=== PATIENT | female | born 2000 | race Caucasian/White ===

== ENCOUNTER 2018-02-12 13:11 | Inpatient (IN) ==
[2018-02-12] MEDS ORDERED: PROMETHAZINE 25 MG/ML VIAL IV ONE (13:35)
[2018-02-12] MEDS ORDERED: 0.9 % SODIUM CHLORIDE 1,000 ML IV ONE (13:35)
--- NOTE | 2018-02-12 13:41 | Emergency Department Note ---
Fever HPI - General Chief Complaint: Fever Stated Complaint: cough, vomiting, fever Time Seen by Provider: 02/12/18 13:15 Source: patient Mode of arrival: wheelchair Limitations: no limitations - History of Present Illness HPI Narrative: 17-year-old female presents with worsening cold symptoms. She has been seen twice in the [facility] and was taking Augmentin. She had a chest x-ray about 10 days ago that showed some left upper volume loss but needed repeat x-rays. She states she has had on and off fevers and does not know how high they are. She has had a few episodes of vomiting and has had rib pain. She has a lot of sinus congestion. She has nausea. She has not been able to eat much or drink. She denies any urinary symptoms. She was told to come here for a sepsis workup. - Related Data Previous Rx's Medication Instructions Recorded montelukast 10 mg tablet 10 mg PO QHS #30 tab 01/28/18 Allergies Allergy/AdvReac Type Severity Reaction Status Date / Time hydrocodone Allergy Intermediate Hives Verified 02/12/18 12:34 Review of Systems All systems ED: reviewed and negative except as stated. Fever PMH - Past Medical History Medical history: Reports: other (PCOS) Surgical history ED: Reports: non-contributory Psychiatric history: Reports: no psych history PEARL DIVER history: Reports: non-contributory Family history: Reports: no significant family history - Social History smoking status: Never smoker Physical Exam Limitations: no limitations General appearance: alert, in no apparent distress Head: atraumatic Eye: Present: normal appearance. Absent: conjunctival injection Neck: Present: normal inspection, full ROM Chest: Present: normal inspection, symmetric chest wall rise, tenderness (left anterior ribs) Respiratory: Present: other (Decreased lung sounds left upper lobe) Cardiovascular: Present: regular rate, normal heart sounds Abdominal: Present: soft, normal bowel sounds. Absent: tenderness Extremities: Present: normal inspection, full ROM Neurological: Present: alert, oriented X3 Psychiatric: Present: normal affect, normal mood Skin: Present: warm, dry, intact Course Vital Signs Temperature 98.3 F 02/12/18 13:12 Pulse Rate 89 02/12/18 13:12 Respiratory Rate 18 02/12/18 13:12 Blood Pressure 125/85 02/12/18 13:12 Temperature 98.3 F 02/12/18 13:34 Pulse Rate 89 05/26/18 13:34 Respiratory Rate 16 02/12/18 14:04 Blood Pressure 125/85 02/12/18 13:34 Pulse Oximetry (%) 96 02/12/18 13:34 Fever - MDM Narrative Medical decision making narrative: Because of her elevated white count and worsening condition she will be admitted for IV antibiotics. - Lab Data Lab results reviewed: Yes I reviewed the patient's lab results. Result diagrams: 02/12/18 13:55 02/12/18 13:55 Lab Results 02/12/18 02/12/18 02/12/18 Range/Units 13:55 13:55 13:55 WBC 14.8 H (4.5-11.0) K/mcL RBC 4.87 (4.00-5.20) M/mcL Hgb 14.6 (12.0-15.0) g/dL Hct 41.7 (36.0-48.0) % MCV 85.6 (80.0-100.0) fL MCH 30.0 (26.0-34.0) pg MCHC 35.0 (31.0-36.0) g/dL RDW 12.4 (11.5-14.5) % Plt Count 335 (140-440) K/mcL MPV 8.2 (7.4-10.4) fL Gran % 81.2 H (38.0-78.0) % Lymph % (Auto) 11.3 L (15.5-49.0) % Rhea % (Auto) 5.8 (1.0-12.0) % Eos % (Auto) 0.8 (0.0-7.0) % Baso % (Auto) 0.9 (0.0-2.0) % Gran # 12.0 H (1.8-8.0) K/mcL Lymph # (Auto) 1.7 (1.5-4.8) K/mcL Rhea # (Auto) 0.9 (0.1-0.9) K/mcL Eos # (Auto) 0.1 (0.0-0.7) K/mcL Baso # (Auto) 0.1 (0.0-0.3) K/mcL VBG Lactic Acid 1.3 (0.5-2.2) mmol/L Sodium 135 (133-145) mmol/L Potassium 3.6 (3.3-5.1) mmol/L Chloride 94 L (96-108) mmol/L Carbon Dioxide 24 (22-30) mmol/L Anion Gap 17.0 H (8-16) BUN 7 (6-20) mg/dl Creatinine 0.8 (0.6-1.1) mg/dl GFR Calculation 107 Glucose 82 (70-105) mg/dL Calcium 9.7 (8.6-10.4) mg/dl Total Bilirubin 0.9 (0.0-1.0) mg/dL AST 29 (0-37) U/l ALT 51 H (0-40) U/l Alkaline Phosphatase 100 (39-117) U/L Total Protein 8.4 (5.9-8.4) gm/dL Albumin 4.5 (3.2-5.2) gm/dL Globulin 3.9 H (2.2-3.7) gm/dL Albumin/Globulin Ratio 1.2 (1.0-2.3) Urine Color Urine Appearance Urine pH (5.0-9.0) Ur Specific Crawford (1.000-1.035) Urine Protein (NEG) mg/dL Urine Glucose (UA) (NEG) mg/dL Urine Ketones (NEG) mg/dL Urine Occult Blood (<0.03) mg/dL Urine Nitrate (NEG) Urine Bilirubin (NEG) mg/dL Urine Urobilinogen (NEG) mg/dL Ur Leukocyte Esterase (NEG) /uL Urine RBC (0-1) /hpf Urine WBC (0-4) /hpf Ur Squamous Epith Cells (0-4) /hpf Ur Transition Epith Cell (0-2) /hpf Urine Bacteria (0) /hpf Urine Mucus (0) /hpf Ur Culture Indicated? 02/12/18 Range/Units 13:59 WBC (4.5-11.0) K/mcL RBC (4.00-5.20) M/mcL Hgb (12.0-15.0) g/dL Hct (36.0-48.0) % MCV (80.0-100.0) fL MCH (26.0-34.0) pg MCHC (31.0-36.0) g/dL RDW (11.5-14.5) % Plt Count (140-440) K/mcL MPV (7.4-10.4) fL Gran % (38.0-78.0) % Lymph % (Auto) (15.5-49.0) % Rhea % (Auto) (1.0-12.0) % Eos % (Auto) (0.0-7.0) % Baso % (Auto) (0.0-2.0) % Gran # (1.8-8.0) K/mcL Lymph # (Auto) (1.5-4.8) K/mcL Rhea # (Auto) (0.1-0.9) K/mcL Eos # (Auto) (0.0-0.7) K/mcL Baso # (Auto) (0.0-0.3) K/mcL VBG Lactic Acid (0.5-2.2) mmol/L Sodium (133-145) mmol/L Potassium (3.3-5.1) mmol/L Chloride (96-108) mmol/L Carbon Dioxide (22-30) mmol/L Anion Gap (8-16) BUN (6-20) mg/dl Creatinine (0.6-1.1) mg/dl GFR Calculation Glucose (70-105) mg/dL Calcium (8.6-10.4) mg/dl Total Bilirubin (0.0-1.0) mg/dL AST (0-37) U/l ALT (0-40) U/l Alkaline Phosphatase (39-117) U/L Total Protein (5.9-8.4) gm/dL Albumin (3.2-5.2) gm/dL Globulin (2.2-3.7) gm/dL Albumin/Globulin Ratio (1.0-2.3) Urine Color Yellow Urine Appearance Clear Urine pH 6.0 (5.0-9.0) Ur Specific Crawford 1.024 (1.000-1.035) Urine Protein 30 A (NEG) mg/dL Urine Glucose (UA) Negative (NEG) mg/dL Urine Ketones 5/tr A (NEG) mg/dL Urine Occult Blood Neg (<0.03) mg/dL Urine Nitrate Neg (NEG) Urine Bilirubin Neg (NEG) mg/dL Urine Urobilinogen 4.0 A (NEG) mg/dL Ur Leukocyte Esterase Neg (NEG) /uL Urine RBC < 1 (0-1) /hpf Urine WBC 3 (0-4) /hpf Ur Squamous Epith Cells 1 (0-4) /hpf Ur Transition Epith Cell < 1 (0-2) /hpf Urine Bacteria 0 (0) /hpf Urine Mucus Many A (0) /hpf Ur Culture Indicated? No - Radiology Data Radiology results reviewed: Yes I reviewed the patient's radiology results. 1. Improved left upper lobe volume loss and infiltrate 2. Slight interval worsening of lingular infiltrate 3. Findings remain consistent with pneumonia. Disposition Pt seen by LEGAL RECORDS MANAGER/PA only: Yes Clinical Impression: Community acquired pneumonia Disposition: Xfer As Inpt ([facility]) Condition: Fair Referrals: Nicole Bajwa [Primary Care Provider] -
--- NOTE | 2018-02-12 14:36 | XRay Report ---
INDICATION: Cough TECHNIQUE: PA and lateral upright chest x-ray COMPARISON: 02/02/2018 FINDINGS:Left upper lobe volume loss and infiltrate are improved however there is increased lingular infiltrate. Appearance is consistent with pneumonia. Findings have improved overall but have not resolved and continued follow-up recommended. Heart size and vascularity are normal. Basia and mediastinum are negative. No pleural fluid. IMPRESSION: 1. Improved left upper lobe volume loss and infiltrate 2. Slight interval worsening of lingular infiltrate 3. Findings remain consistent with pneumonia. Interpreted and Authenticated by: Al Edmonds 02/12/18
[2018-02-12 14:41] LABS: Appearance,Urine CLEAR; Bacteria,Urine 0 /hpf (0); Bilirubin,Urine NEG (NEG); Color,Urine YELLOW; Glucose,Urine (UA) NEGATIVE (NEG); Leukocyte Esterase,Urine NEG /uL (NEG); Mucus,Urine MANY /hpf (0); Protein,Urine 30 mg/dL (NEG); Specific Gravity,Urine 1.024 (1.000-1.035); Urine Blood NEG mg/dL (<0.03); Urine RBC < 1 /hpf (0-1); Urine Squamous Epithelial Cell 1 /hpf (0-4); Urine Transitional Epi Cells < 1 /hpf (0-2); Urine WBC 3 /hpf (0-4)
[2018-02-12 14:52] LABS: ALT/SGPT 51 U/l (0-40); Albumin 4.5 gm/dL (3.2-5.2); Albumin/Globulin Ratio 1.2 (1.0-2.3); Alkaline Phosphatase 100 U/L (39-117); Basophils # (Auto) 0.1 K/mcL (0.0-0.3); Basophils % (Auto) 0.9 % (0.0-2.0); Blood Urea Nitrogen 7 mg/dl (6-20); Eosinophils # (Auto) 0.1 K/mcL (0.0-0.7); Eosinophils % (Auto) 0.8 % (0.0-7.0); Granulocytes % (Auto) 81.2 % (38.0-78.0); Lymphocytes # (Auto) 1.7 K/mcL (1.5-4.8); Lymphocytes % (Auto) 11.3 % (15.5-49.0); Mean Cell Volume 85.6 fL (80.0-100.0); Monocytes # (Auto) 0.9 K/mcL (0.1-0.9); Monocytes % (Auto) 5.8 % (1.0-12.0); Platelet Count 335 K/mcL (140-440); RBC 4.87 M/mcL (4.00-5.20); Red Cell Distribution Width 12.4 % (11.5-14.5)
[2018-02-12] MEDS ORDERED: cefTRIAXone 2 GM VIAL IV ONE (14:57)
[2018-02-12] MEDS ORDERED: LEVOFLOXACIN 750 MG/150 ML BAG IV ONE (14:57)
--- NOTE | 2018-02-12 15:58 | Internal Med History&Physical ---
Medical - H&P: [facility] Patient information: Note initiated : 02/12/18 at 3:56 pm Patient: Eirka Whitaker 17 y/o F admitted on 12 February for pneumonia which failed outpatient antibiotics. Chief Complaint: cough, nausea, fever, myalgias. History of present illness: Ms. Whitaker is a 17 year old F with history of environmental allergies and allergy induced intermittent asthma who presented with persistent cough and fever after completing course of Augmentin for outpatient pneumonia. Patient reports she started feeling ill with cough, fever, nausea, headache, and vague myalgias, particularly in her back about two weeks ago. She recently finished up spring and returned home for the summer. She had been seen and evaluated in the urgent care setting, and was diagnosed with a left upper lobe pneumonia, community acquired, and placed on Augmentin. She never improved, and now reports some worsening in the last two days. She denies vomiting, but reports she hasn't eaten well due to nausea which she attributes to swallowing the phlegm that she's been coughing up. Contacts are well, no previous history of pneumonia, no hospitalizations for asthma in the past. Does not believe she has ever been on prednisone. Rarely uses her inhaler, and she has not increased use with current illness. No oral contraceptives, no history of VTE except for father thinks his mother might have had a blood clot at some time. Non-smoker with no smoking exposure. In the ED, she was found to have persistent white count (14) and CXR demonstrated worsening of a lingular infiltrate while noting improvement of CLARY infiltrate. Cultures were drawn and IV antibiotics initiated. I received sign out from Aisha Prince and accepted the patient. All systems: reviewed and no additional remarkable complaints except as stated - Genitourinary Additional comments: LMP about 3 weeks ago Medical - H&P: PMH Medical history: Ear infections as a child. No h/o tympanostomy tubes. Environmental allergies - on Singulair Allergy induced asthma - prn inhaled beta agonist. Polycystic ovary syndrome - no medications at present. Hypoglycemia - reports diagnosed with 5 hour glucose tolerance test. Pertinent family history: Possible VTE event in paternal grandmother; details not clear. Multiple family members, including father, with asthma. Social history: Lives with grandmother at the moment, just finished spring at [employer] where she is studying [employer] education. Vegetarian diet since September, lifelong non smoker, no alcohol or illicit drug use. Functional capacity: independent ambulation Smoking status: Never smoker Medical - H&P: Meds Home Medications Medication Instructions Recorded Confirmed Type montelukast 10 mg tablet 10 mg PO QHS #30 tab 01/28/18 02/12/18 Rx Allergies Allergy/AdvReac Type Severity Reaction Status Date / Time hydrocodone Allergy Intermediate Hives Verified 02/12/18 12:34 Medical - H&P: Exam - Constitutional Vitals: Temp Pulse Resp BP Pulse Ox 98.7 F 84 16 125/83 97 02/12/18 15:10 02/12/18 15:10 02/12/18 14:04 02/12/18 15:10 02/12/18 15:10 - Other Additional findings: GENERAL: Patient was quite tearful when I initially went into the room, she was in the process of getting a blood culture drawn and noted that needles had always made her an easy. She was cooperative with the interview and exam, intermittent cough was noted, respirations unlabored speech coherent fluent and articulate content appropriate. HEENT: Head is atraumatic normocephalic, EARS: left TM has old scar evident otherwise pearly abrams and translucent, right TM is pearly abrams but has obvious retraction against the ossicle. Neither shows erythema or bulging. No sinus tenderness. EYES: No icterus no injected vessels no periorbital edema or swelling. Full range of extraocular movements, PERRL. OROPHARYNX: Lime dentition with good oral hygiene, palate raised symmetrically, no posterior erythema, no tonsillar swelling or exudates. NECK: Trachea is midline, no masses or adenopathy RESPIRATORY: No accessory muscle involvement, air entry to the bases, isolated expiratory wheeze noted right posterior lung samuels, no focal areas of crackles or diminished breath sounds. No dullness to percussion. CARDIAC: Regular rate and rhythm no murmurs rubs or gallops. ABDOMINAL: Occasional bowel sounds, nondistended, soft, nontender no masses or hepatosplenomegaly. EXTREMITIES: No edema, no palpable cords, pulses 4, capillary refill less than 3 seconds. SKIN: No rash, no urticaria, no vascular mottling noted. MUSCULOSKELETAL: No joint swelling erythema or long bone deformities, uncomfortable to palpation of upper lumbar lower thoracic back. Medical - H&P: Reslt - Labs CBC & Chem 7: 02/12/18 13:55 02/12/18 13:55 Labs: Short CBC 02/12/18 Range/Units 13:55 WBC 14.8 H (4.5-11.0) K/mcL Hgb 14.6 (12.0-15.0) g/dL Hct 41.7 (36.0-48.0) % Plt Count 335 (140-440) K/mcL BMP 02/12/18 13:55 Sodium 135 Potassium 3.6 Chloride 94 L Carbon Dioxide 24 BUN 7 Creatinine 0.8 Glucose 82 Calcium 9.7 Liver Function 02/12/18 Range/Units 13:55 Total Bilirubin 0.9 (0.0-1.0) mg/dL AST 29 (0-37) U/l ALT 51 H (0-40) U/l Alkaline Phosphatase 100 (39-117) U/L Albumin 4.5 (3.2-5.2) gm/dL Urine 02/12/18 Range/Units 13:59 Urine Color Yellow Urine Appearance Clear Urine pH 6.0 (5.0-9.0) Ur Specific Union 1.024 (1.000-1.035) Urine Protein 30 A (NEG) mg/dL Urine Glucose (UA) Negative (NEG) mg/dL - Imaging and Cardiology Chest x-ray Status: image reviewed by me (left upper lobe infiltrate still evident, improved from previous. ) Additional comments: Also reviewed Dr. Ang's report - more subtle lingular infiltrate present. Medical - H&P: A/P - Narrative A/P Narrative: 1 - Pneumonia, community acquired, unresponsive to outpatient therapy. Patient has been compliant with medications. Suspect either resistant or atypical organism. Has been started on Levaquin in the ED, should cover what the Augmentin did not. Blood and sputum cultures obtained, but may be unreliable given recent antibiotics; will check urine antigens. Although less likely, possible evolving complication including empyema or abscess - so will check non- contrast CT. No overt sepsis at present, oxygenating well. Anticipate requiring at least two midnights for appropriate IV antibiotics. 2 - proteinuria - blood pressure normal, GFR and creatinine normal. Checking urine antigens as above. 3 - h/o intermittent asthma - no evidence of exacerbation at present, will use prn beta agonists. 4 - h/o environmental allergies - continue Singulair. Plan: Inpatient admission Pulse ox with vitals Prn oxygen if she should require it Duo neb prn Continue singulair IV Levaquin Non-con chest CT Await urine antigens Consider oral prednisone regular diet repeat labs in AM Tylenol prn for fever or myalgias full code. Time spent on evaluating patient, reviewing data, discussion with parents, coordinating admission, 50 minutes.
[2018-02-12] MEDS ORDERED: ONDANSETRON 4 MG/2 ML VIAL IV ONE (16:19)
[2018-02-12] MEDS ORDERED: IPRATROPIUM/ALBUTEROL 3 ML AMPUL.NEB NEB PRN (16:48)
--- NOTE | 2018-02-12 19:29 | Cat Scan Report ---
CLINICAL INFORMATION: Pneumonia COMPARISON: Chest x-rays dated 02/02/2018, 02/12/2018 TECHNIQUE: Axial noncontrast enhanced images through the chest. Sagittally and coronally reformatted images. MIP reformatted images. FINDINGS: There is infiltrate and volume loss in the left upper lobe. There is also mild left lower lobe infiltrate and infiltrate extending into the lingular segment of the left upper lobe. Findings are consistent with pneumonia. There is left hilar adenopathy. This is suboptimally evaluated as this patient did not receive intravenous contrast material. No pathologic mediastinal lymphadenopathy. Left hilar adenopathy is probably reactive and physiologic. If pneumonia is persistent in this young patient bronchoscopy would be appropriate. There is minimal infiltrate in the posterior basilar segment of the right lower lobe. Right lung is otherwise negative There is no pleural fluid. No pericardial fluid. No axillary or supraclavicular adenopathy. Images through the upper abdomen are negative. Thoracic spine, ribs, sternum are negative IMPRESSION: 1. Predominantly left lung infiltrate consistent with pneumonia. Follow-up chest x-rays recommended 2. Left hilar adenopathy is not well evaluated on this noncontrast enhanced examination. This is probably reactive physiologic adenopathy. The exam was performed using radiation dose optimization techniques including, but not limited to, automated exposure control, adjustment of the mA and/or kV according to patient size and use of iterative reconstruction technique. Interpreted and Authenticated by: Al Edmonds 02/12/18
[2018-02-12] MEDS: MONTELUKAST 10 MG TABLET PO SCH (20:47)
[2018-02-12] MEDS: 0.9 % SODIUM CHLORIDE 10 ML SYRINGE IV SCH (22:00)
[2018-02-13] MEDS: 0.9 % SODIUM CHLORIDE 10 ML SYRINGE IV SCH ×3 (05:32→22:08)
[2018-02-13 06:04] LABS: ALT/SGPT 38 U/l (0-40); Albumin 3.7 gm/dL (3.2-5.2); Albumin/Globulin Ratio 1.1 (1.0-2.3); Alkaline Phosphatase 87 U/L (39-117); Bilirubin,Direct < 0.2 mg/dL (0.0-0.3); Blood Urea Nitrogen 7 mg/dl (6-20); Gamma Glutamyl Transpeptidase 22 U/L (5-36); Uric Acid 4.7 mg/dL (2.5-8.0)
--- NOTE | 2018-02-13 08:07 | Internal Med Progress Note ---
Medical - PN: Subj Patient information: Note initiated : 02/13/18 at 8:02 am Patient: Erika Whitaker 17 y/o F admitted on 02/12/18 for pneumonia, failed outpatient treatment. Interval history: No new complaints this morning; states "feels better" - particularly in regard to myalgias. No headache. Cough present, worse with deep breathing, denies sputum this AM. Nausea much better as well. Hasn't been out of bed yet, hasn' t eaten breakfast yet, but states feels hungry. Notes some discomfort with placement of IV in left antecubital area, but does not want any more needles. Tells me she was living in student housing in [place] while in school, as far as she knows, no illnesses there. - Constitutional Vitals: Vital Signs Temp Pulse Resp BP Pulse Ox 98.2 F 75 18 125/72 97 02/13/18 03:53 02/13/18 03:53 02/13/18 03:53 02/13/18 03:53 02/13/18 03:53 Period Temp Pulse Resp BP Sys/Tolentino Pulse Ox Last 24 Hr 98.1 F-99.1 F 75-97 16-20 106-125/62-85 95-98 Intake and Output 02/12/18 02/13/18 02/13/18 21:59 05:59 13:59 Intake Total 1150 / 1150 150 / 150 Output Total 450 / 450 Balance 700 / 700 150 / 150 Weight 216 lb Intake & Output: Intake & Output 02/12/18 02/13/18 02/13/18 21:59 05:59 13:59 Intake Total 1150 / 1150 150 / 150 Output Total 450 / 450 Balance 700 / 700 150 / 150 Weight 216 lb Intake: IV 1150 / 1150 Sodium Chloride 0.9% 1,000 ml @ 1000 / 1000 Wide Open IV BOLUS ONE Rx#: [id number] Oral 150 / 150 Output: Void Amount 450 / 450 Other: # Voids 2 - Additional findings Additional findings: GENERAL: No acute distress. Shallow breathing. Speech coherent, fluent, articulate; cooperative. Follows directions. No shortness of breath noted during exam, but cough present with any deep breaths. Noted patient appears to avoid deep breathing to avoid the cough. HEENT: Moist mucus membranes, color good, no scleral icterus. NECK: No masses, trachea midline LUNGS: Cough with deep breathing. No sputum noted. Air entry to bases, initial end-insp squeaks and pops which cleared with repeated encouragement to deep breathe. No focally diminished breath sounds, no wheezes, no crackles. COR: Regular rate and rhythm, no murmurs, rubs, gallops EXT: Pulses x 4, warm, cap refill <2 sec. Medical - PN: Obj Da - Labs CBC & Chem 7: 02/12/18 13:55 02/13/18 03:49 Labs: Abnormal Lab Results 02/12/18 02/12/18 02/12/18 13:59 13:55 13:55 WBC 14.8 H Gran % 81.2 H Lymph % (Auto) 11.3 L Gran # 12.0 H Chloride 94 L Anion Gap 17.0 H ALT 51 H Globulin 3.9 H Urine Protein 30 A Urine Ketones 5/tr A Urine Urobilinogen 4.0 A Urine Mucus Many A Meds: Medications Albuterol/Ipratropium (Duoneb) 3 ml NEB Q4HP PRN PRN Reason: Shortness Of Breath Montelukast Sodium (Singular) 10 mg PO QHS [facility] Last Admin: 02/12/18 20:47 Dose: 10 mg Ondansetron HCl (Zofran) 4 mg IV Q6HP PRN PRN Reason: Nausea And Vomiting Sodium Chloride (Saline Flush) 10 ml IV Q8 [facility] Last Admin: 02/13/18 05:32 Dose: 10 ml Medical - PN: A/P - Time Spent With Patient Total time spent is greater than 50% in coordination of care (as documented) at patient's floor/unit and/or counseling patient: 15 - 24 minutes - Narrative A/P Narrative: 1) Pneumonia: Afebrile all night, no white count this AM, will check tomorrow. She has incentive spirometry at bedside, encouraged her to use it regularly. Discussed importance of deep breathing to fully expand the lungs and its role in clinical improvement. Continue IV Levaquin, awaiting urine antigens. Has not been able to provide a sputum sample yet - at this point, may be of limited value given IV antibiotics. Will continue to try to obtain. 2)Proteinuria - incidentally noted on initial urine. Blood pressures have been fine, chemistries fine this AM. Urine should be rechecked after illness over, at this point, no significant suspicion of infection related glomerular nephritis. No evidence of acute kidney injury. 3) History of asthma - no evidence of infection related exacerbation. Nebs prn. Plan: IV abx - to continue at least one more day. Await urine antigen results Encourage activity (out of bed, walk, up to chair) Encourage incentive spirometry - even if deep breathing evokes cough Repeat CBC in AM. Continue nebs and Singulair. Medical - PN: Qual - Stroke Symptom Onset Unknown: No - VTE Deep Vein Thrombosis/Pulmonary Embolism Present on Admission: No
[2018-02-13] MEDS: LEVOFLOXACIN 750 MG/150 ML BAG IV SCH (12:16)
[2018-02-13] MEDS: ONDANSETRON 4 MG/2 ML VIAL IV PRN (14:06)
[2018-02-13] MEDS ORDERED: ACETAMINOPHEN 325 MG TABLET PO ONE (19:23)
[2018-02-13] MEDS: MONTELUKAST 10 MG TABLET PO SCH (20:23)
[2018-02-13] MEDS: ACETAMINOPHEN 325 MG TABLET PO PRN (23:27)
[2018-02-14] MEDS: ACETAMINOPHEN 325 MG TABLET PO PRN (02:59)
[2018-02-14] MEDS: 0.9 % SODIUM CHLORIDE 10 ML SYRINGE IV SCH (05:15)
[2018-02-14] MEDS: LEVOFLOXACIN 750 MG/150 ML BAG IV SCH (08:45)
[2018-02-14] MEDS: ONDANSETRON 4 MG/2 ML VIAL IV PRN (09:49)
[2018-02-14 12:15] LABS: Mean Cell Volume 90.4 fL (80.0-100.0); Mean Corpuscular HGB Conc 34.9 g/dL (31.0-36.0); Mean Corpuscular Hemoglobin 31.6 pg (26.0-34.0); Platelet Count 369 K/mcL (140-440); RBC 4.59 M/mcL (4.00-5.20); Red Cell Distribution Width 12.8 % (11.5-14.5)
--- NOTE | 2018-02-14 12:41 | Discharge Summary ---
Medical - DS: Prov Patient information: Note initiated : 02/14/18 at 12:39 pm Patient: Erika Whitaker 17 y/o F admitted on 02/12/18 for pneumonia, unresponsive to outpatient therapy. Date of admission: 02/12/18 16:40 Discharge date: 02/14/18 Primary care physician: Nicole Bajwa Admitting clinician: Mana Perrin Attending physician on admission: Mana Perrin Consults: 02/12/18 15:03 Consult to Physician [CONS] Stat Comment: Consulting Provider: Mana Perrin Reason For Exam: Physician to Consult Attending physician on discharge: Mana Perrin Medical - DS: Meds - Discharge Medications Prescriptions: Levofloxacin [Levaquin] 750 mg PO DAILY #7 tab Active and Home Medications: Home Medications montelukast 10 mg tablet 10 mg PO QHS #30 tab 01/28/18 [Rx Confirmed 02/12/18 Last Taken Unknown] Acetaminophen [Tylenol] 650 mg PO Q4HP PRN tablet 02/14/18 [Rx Last Taken Unknown] Ipratropium/Albuterol [Duoneb] 3 ml NEB Q4HP PRN ampul.neb 02/14/18 [Rx Last Taken Unknown] Levofloxacin [Levaquin] 750 mg PO DAILY #7 tab 02/14/18 [Rx Last Taken Unknown] Medical - DS: Hosp Hospital course: Mr. Whitaker is a 17 year old F admitted with pneumonia which had failed outpatient course of Augmentin. 02/12: At time of admission, she had elevated white count at 14 and had been febrile. Cough was noted. She was started on Levaquin in the ED, as well as prn albuterol. Blood cultures and urine antigen studies were obtained. She had no hypoxia at time of admission. 02/13: Desdemona improved, did not produce sputum since admission, although cough continued. Deep breathing stimulated cough and she tended to avoid that. Started incentive spirometry, used acetaminophen for pain related to cough. Continued the Levaquin. Remained a febrile with no oxygen requirement. 02/14: Desdemona essentially back to normal except for cough. Again denied sputum production. Had been afebrile since admission. Good improvement with deep breathing and adequate cough was noted. White count normalized at 7, blood cultures negative at time of discharge. Discharge diagnosis: Bacterial pneumonia, unidentified organism, failed outpatient therapy Secondary discharge diagnosis: Environmental allergies Allergy induce asthma Pertinent studies/significant findings: Chest Xray on admission: FINDINGS:Left upper lobe volume loss and infiltrate are improved however there is increased lingular infiltrate. Appearance is consistent with pneumonia. Findings have improved overall but have not resolved and continued follow-up recommended. Heart size and vascularity are normal. Basia and mediastinum are negative. No pleural fluid. IMPRESSION: 1. Improved left upper lobe volume loss and infiltrate 2. Slight interval worsening of lingular infiltrate 3. Findings remain consistent with pneumonia. Urine Strep pneumoniae Antigen negative STUDIES PENDING AT THE TIME OF DISCHARGE: 1) Urine Legionella antigen 2) Final report on blood cultures. Negative x 48 hours at discharge. - Time Spent with Patient Total time spent providing and/or coordinating discharge services: Less than 30 minutes Medical - DS: Exam - Constitutional Vitals: Vital Signs Temp Pulse Pulse Resp BP Pulse Ox 02/14/18 06:41 98 F 18 115/70 93 02/14/18 03:03 97.4 F 87 18 112/71 98 02/13/18 23:32 98.4 F 80 16 108/71 98 02/13/18 19:11 97.9 F 92 H 18 106/63 94 02/13/18 15:54 97.9 F 16 96/70 95 02/13/18 13:16 80 20 98 Intake and Output 02/13/18 02/14/18 02/14/18 21:59 05:59 13:59 Intake Total 400 / 400 700 / 700 Output Total 350 / 350 Balance 400 / 400 350 / 350 Intake: Oral 400 / 400 700 / 700 Output: Void Amount 350 / 350 Other: Weight 215 lb - Other Additional findings: GENERAL: No acute distress bright affect, animated. HEENT: Moist membranes. LUNGS: Air entry to bases, coarseness noted bilateral bases with no wet rales and no rhonchi. No expiratory wheeze noted. COR: Regular rate and rhythm, no murmurs EXTREMITIES: Warm, no nailbed cyanosis, pulses x4 Medical - DS: Data Labs on day of discharge: Labs from last 24 hours 02/14/18 02/14/18 09:12 03:51 WBC 7.0 TNP RBC 4.59 TNP Hgb 14.5 TNP Hct 41.5 TNP MCV 90.4 TNP MCH 31.6 TNP MCHC 34.9 TNP RDW 12.8 TNP Plt Count 369 TNP MPV 7.8 TNP Preliminary micro results at discharge 02/12/18 15:38 Blood Culture - Preliminary Blood 02/12/18 15:20 Blood Culture - Preliminary Blood Medical - DS: A/P - Patient/Caregiver Discharge Instructions Activity: increase activity as tolerated Diet: Regular Diet Additional Instructions: Use the incentive spirometry regularly May use Tylenol as needed for discomfort with cough. Use your usual home albuterol for any wheezing. Continue Levaquin as prescribed. Return for new fevers, chills, other symptoms. Prescriptions: Levofloxacin [Levaquin] 750 mg PO DAILY #7 tab - Follow up Plan Follow up with: Nicole Bajwa [Primary Care Provider] - 02/28/18 (Call provider on 02/15/18 to schedule follow up next week) Disposition: Home, Self-Care Prognosis: Good Rehab Potential: Good Overall status at discharge: patient is progressing back to baseline Medical - DS: Qual - VTE Deep Vein Thrombosis/Pulmonary Embolism Present on Admission: No
== END 2018-02-14 14:26 | disposition home or self-care (01) | DRG 195 ==
LOC: ED 13:11 → ICU 16:35
PROVIDERS: ADMIT Family Medicine; ATTEND Family Medicine